=== PATIENT | male | born 1975 | race Caucasian/White ===

== ENCOUNTER → 2016-09-03 | Day surgery (SDC) | payer BC ==
[~2016-09-03] VITALS: Ht 172.7 cm; Wt 86.2 kg
[2016-09-03] VITALS (10 sets, daily range): BP systolic 134–156; BP diastolic 75–95
[~2016-09-03] MED LIST: BACLOFEN10 MG ORAL; DICLOFENAC SODI25 MG ORAL; GABAPENTIN300 MG ORAL; Norco 5mg/325mg tab ORAL PRN; TRAMADOL HCL50 MG ORAL; fentaNYL 100 mcg/2 mL IV PRN
[2016-09-03 08:49] LABS: THYROID STIMULATING HORMONE 2.88 uIU/mL (0.300-4.500)
--- NOTE | 2016-09-03 09:00 | Pre-Procedure Note/Attestation ---
Pre-Procedure Note/Attestation Complete Prior to Procedure Planned Procedure: not applicable Procedure Narrative: egd/colon Indications for Procedure Pre-Operative Diagnosis: abd pain, diarrhea Attestation I attest that I discussed the nature of the procedure; its benefits; risks and complications; and alternatives (and the risks and benefits of such alternatives ), prior to the procedure, with the patient (or the patient's legal pharmaceutical service representative). I attest that, if there was a reasonable possibility of needing a blood transfusion, the patient (or the patient's legal pharmaceutical service representative) was given the [facility] standardized written summary, pursuant to the [place] Blood Safety Act ([place] Health and Safety Code # 1645, as amended). I attest that I re-evaluated the patient just prior to the surgery and that there has been no change in the patient's H&P, except as documented below: HIRAM KRISHNA Sep 03, 2016 09:00
--- NOTE | 2016-09-03 09:02 | Short Stay Surgery H&P ---
History of Present Illness History of Present Illness Chief Complaint abd pain, diarrhea HPI Benjie Jones is a 41 year old male who was admitted on for Abdominal Pain Patient History Allergies: Coded Allergies: PENICILLINS (Verified Allergy, Severe, Rash, 09/03/16) PAST MEDICAL HISTORY: (1) DM (diabetes mellitus) (2) Chronic pain Past Surgeries: Social History: Medication History Scheduled Baclofen* (Baclofen*), 20 MG ORAL QID, (Reported) Diclofenac Sod* (Voltaren*), Unknown Dose ORAL BID, (Reported) Gabapentin* (Gabapentin*), 300 MG ORAL BEDTIME, (Reported) Scheduled PRN Tramadol Hcl* (Ultram*), 50 MG ORAL Q6H PRN for For Pain, (Reported) Review of Systems Cardiovascular: Reports: no symptoms Respiratory: Reports: no symptoms Skeletal: Reports: no symptoms Gastrointestinal: Reports: no symptoms Genitourinary: Reports: no symptoms Neurologic: Reports: no symptoms Endocrine: Reports: no symptoms Hematologic: Reports: no symptoms Physical Exam Vital Signs Last Vital Signs Date Time Temp Pulse Resp B/P Pulse Ox O2 Delivery O2 Flow Rate FiO2 09/03/16 07:57 98.2 97 18 152/92 96 Room Air Labs Laboratory Tests Test 09/03/16 07:55 Thyroid Stimulating Hormone (TSH) 2.880 uIU/mL (0.300-4.500) Free Thyroxine 1.38 ng/dL (0.86-1.85) Skin: normal HENT: normal Heart: normal Lungs: normal Abdomen: normal Extremities: normal Plan Plan of Care egd/colonoscopy Final Diagnosis: Attestation Are the patient's medical conditions optimized for surgery? Attestation Response: yes HIRAM KRISHNA Sep 03, 2016 09:02
--- NOTE | 2016-09-03 09:24 | Anethesia Preoperative Eval ---
Anesthesia Pre-op PMH/ROS General Date of Evaluation: Sep 03, 2016 Time of Evaluation: 08:58 Anesthesiologist: iram ASA Score: ASA 3 Mallampati Score Class I : Soft palate, uvula, fauces, pillars visible Class II: Soft palate, uvula, fauces visible Class III: Soft palate, base of uvula visible Class IV: Only hard plate visible Mallampati Classification: Class II Surgeon: tre Diagnosis: abdominal pain Surgical Procedure: egd/colonoscopy Anesthesia History: none Allergies: Coded Allergies: PENICILLINS (Verified Allergy, Severe, Rash, 09/03/16) Past Medical History Cardiovascular: Reports: HTN Endocrine: Reports: DM Musculoskeletal/Integumentary: Reports: other - multiple joint pain Anesthesia Pre-op Phys. Exam Physician Exam Last Vital Signs Date Time Temp Pulse Resp B/P Pulse Ox O2 Delivery O2 Flow Rate FiO2 09/03/16 07:57 98.2 97 18 152/92 96 Room Air Airway Exam Mallampati Score: Class II Teeth: intact Anesthesia Pre-op A/P Labs Chemistry Test 09/03/16 07:55 Thyroid Stimulating Hormone (TSH) 2.880 uIU/mL (0.300-4.500) Free Thyroxine 1.38 ng/dL (0.86-1.85) Risk Assessment & Plan Plan: propofol Status Change Before Surgery: Ryan Meza MD Sep 03, 2016 09:24
--- NOTE | 2016-09-03 09:25 | Immediate Post-Op Evaluation ---
Immediate Post-Op Evalulation Immediate Post-Op Evalulation Date of Evaluation: Sep 03, 2016 Time of Evaluation: 09:48 IV Fluids: 500 Blood Pressure Systolic: 149 Blood Pressure Diastolic: 92 Pulse Rate: 86 Respiratory Rate: 16 O2 Sat by Pulse Oximetry: 100 Temperature (Fahrenheit): 97.7 Pain Score (1-10): 0 Nausea: No Vomiting: No Complications none Patient Status: awake, patent, none Hydration Status: adequate Ryan Monge MD Sep 03, 2016 09:25
--- NOTE | 2016-09-03 09:26 | 48 Hour Post Anesthesia Eval ---
Post Anesthesia Evaluation Date of Evaluation: Sep 03, 2016 Time of Evaluation: 10:35 Blood Pressure Systolic: 143 0: 88 Pulse Rate: 85 Respiratory Rate: 12 Temperature (Fahrenheit): 97.7 O2 Sat by Pulse Oximetry: 96 Airway: patent Nausea: No Vomiting: No Pain Intensity: 0 Hydration Status: adequate Cardiopulmonary Status: stable Mental Status/LOC: patient returned to baseline Follow-up Care/Observations: n/a Post-Anesthesia Complications: toloerated well Follow-up care needed: ready to discharge Ryan Monge MD Sep 03, 2016 09:26
--- NOTE | 2016-09-03 09:34 | Endoscopy Procedure Note ---
Endoscopy Procedure Note Indication for Procedure: abd pain Procedures Performed: EGD, colonoscopy Operative Findings/Diagnosis: gastritis, rectal ulcer Specimen: yes Pt Tolerated Procedure Well: Yes Estimated Blood Loss: none Anesthesiologist: iram Anesthesia: MAC Implant(s) used?: No 50 yrs or older w/o bx or poly: No 10yrs. F/U not recommended: Yes If not recommended, why?: Above average risk 10 yrs. F/U needed: Yes 18 years or older w/prev. colo: No HIRAM KRISHNA Sep 03, 2016 09:34
--- NOTE | 2016-09-03 15:59 | Procedure Note ---
DATE OF PROCEDURE: 09/03/2016 SURGEON: Kj Koehler M.D. REFERRING PHYSICIAN: Emanuel Dover M.D. PROCEDURE: Upper endoscopy with biopsy and colonoscopy with biopsy. ANESTHESIA: Per Dr. Monge. INSTRUMENT: Olympus adult flexible upper endoscope and colonoscope. INDICATION FOR PROCEDURE: 1. Abdominal pain, chronic. 2. Diarrhea, chronic. The procedure, risks, benefits, and possible consequences, including hemorrhage, aspiration, perforation and infection, and alternative treatments, were explained to the patient/legal guardian by Dr. Kj Koehler and the patient/legal guardian understood and accepted these risks. DESCRIPTION OF PROCEDURE: After informed consent was obtained and the patient was adequately sedated, the upper Olympus endoscope was advanced from mouth into the second portion of the duodenum and retroflexion was performed in the stomach. The patient has evidence of gastritis. Random biopsy from body and antrum of the stomach was obtained to rule out H. pylori infection. In the pre-pyloric region, there was a small gastric nodule, possibly a deep erosion versus a nodule, which was biopsied. In the duodenum, there was evidence of duodenitis. Random biopsy from the duodenum was obtained. At this time, the upper endoscope was retrieved and the patient was turned over for colonoscopy. First, a rectal exam was performed, which was positive for internal hemorrhoid. Then, the scope was advanced from the rectum into the cecum, then subsequently to the terminal ileum. Quality of the prep was very good. The patient had normal terminal ileum. Colonic mucosa also grossly within normal limits. Random biopsy from right and left was obtained to rule out microscopic colitis. In the rectum, there was a solitary ulcer, linear, measured over a centimeter, was biopsied. Retroflexion in the rectum showed evidence of internal hemorrhoids. SUMMARY OF FINDINGS: 1. Gastritis, status post biopsy. 2. Gastric nodule, status post biopsy. 3. Duodenitis, status post biopsy. 4. Rectal ulcer, status post biopsy. 5. Internal hemorrhoids. RECOMMENDATIONS: Follow up biopsies and treat accordingly. I want to thank, Dr. Dover, for this kind referral. Kj Koehler M.D. DR: CAROLINA JOB#: [id number] CC: Emanuel Dover M.D.; Fax#: [phone]
[2016-09-08 11:13] LABS: LYME DISEASE IGM AB WB Negative (.)
== END | disposition home or self-care (01) ==
LOC: SDS 07:17
DX: K29.50 Unspecified chronic gastritis without bleeding (principal); K31.9 Disease of stomach and duodenum, unspecified; K29.80 Duodenitis without bleeding; R19.7 Diarrhea, unspecified; K62.6 Ulcer of anus and rectum; K64.8 Other hemorrhoids; I10 Essential (primary) hypertension; E11.9 Type 2 diabetes mellitus without complications; G89.29 Other chronic pain; M25.50 Pain in unspecified joint; Z88.0 Allergy status to penicillin
CPT/HCPCS: 36415; 82962; 84439; 84443; 86617; 86618; 94003; 94150